=== PATIENT | female | born 1955 | race Caucasian/White ===

== ENCOUNTER 2018-11-01 20:44 | Emergency (ER) | payer OTHER ==
[~2018-11-01] VITALS: Ht 160 cm; Wt 79.8 kg
[~2018-11-01 20:44] MED LIST: ATENOLOL-CHLOR1 EACH PO; GLUCOPHAGE500 MG PO; LISINOPRIL-HCT1 EAC2 PO; ZOCOR 20 MG TAB20 M1 PO
[2018-11-01] MEDS ORDERED: JANUVIA50 MG (20:55)
[2018-11-01] MEDS ORDERED: WELLBUTRIN SR150 MG (20:55)
[2018-11-01] MEDS ORDERED: NORVASC10 MG (20:56)
[2018-11-01 21:21] LABS: URINE BILIRUBIN NEGATIVE (Negative); URINE BLOOD 3+ (Negative); URINE CLARITY CLOUDY; URINE COLOR YELLOW; URINE GLUCOSE-RANDOM NEGATIVE (Negative); URINE KETONES NEGATIVE (Negative); URINE LEUKOCYTES-REFLEX 2+ (Negative); URINE NITRITE-REFLEX NEGATIVE (Negative); URINE PROTEIN 2+ (Negative); URINE SPECIFIC GRAVITY >= 1.030 (1.005-1.030); URINE UROBILINOGEN 0.2 E.U./dl (0.2-1.0)
[2018-11-01 21:26] LABS: SQUAMOUS 0-3 Few /LPF (0-3)
[2018-11-01 21:27] LABS: CASTS None Seen /LPF (None Seen); CRYSTALS None Seen /LPF (None Seen); URINE RBC >20 Many /HPF (0-2)
[2018-11-01 21:29] LABS: MUCUS None Seen strn/LPF (None Seen); YEAST-REFLEX Present (None Seen)
[2018-11-01] MEDS ORDERED: BACTRIM DS TAB1 EACH PO (22:14)
[2018-11-01] MEDS ORDERED: PHENAZOPYRIDIN200 M2 PO ×2 (22:15→22:16)
[2018-11-01 22:25] VITALS: BP 164/76
[2018-11-01] MEDS ORDERED: DIFLUCAN200 MG PO (22:30)
== END 2018-11-01 22:25 | disposition home or self-care (01) ==
LOC: M.ERS 20:44
PROVIDERS: Personal Emergency Response Attendant
DX: N39.0 Urinary tract infection, site not specified (principal); B37.9 Candidiasis, unspecified; I10 Essential (primary) hypertension; E78.5 Hyperlipidemia, unspecified; Z90.710 Acquired absence of both cervix and uterus; Z85.42 Personal history of malignant neoplasm of other parts of uterus; Z88.8 Allergy status to other drugs, medicaments and biological substances